=== PATIENT | female | born 1985 | race Caucasian/White ===

== ENCOUNTER 2021-03-25 13:16 | Emergency (ER) | payer MEDICAID ==
--- NOTE | 2021-03-25 14:44 | EDM.PDOC ---
ED HPI GENERAL MEDICAL PROBLEM - General Chief Complaint: General Stated Complaint: MED[facility] Time Seen by Provider: 03/25/21 14:34 Source of Information: Reports: Patient, EMS, RN Notes Reviewed History Limitations: Reports: No Limitations - History of Present Illness INITIAL COMMENTS - FREE TEXT/NARRATIVE: 35-year-old female presents emergency department today via EMS services for 2 issues 1 is she has noticed some increased swelling in her lower extremities she is also developed a little bit of rash and itchy legs her nifedipine dose was recently increased. The other issue is she states she cannot identify her IUD and would like to have that checked Bilateral Leg Pain Score (Numeric/FACES): 4 - Related Data Allergies Allergy/AdvReac Type Severity Reaction Status Date / Time No Known Allergies Allergy Verified 03/25/21 14:11 Past Medical History Cardiovascular History: Reports: Hypertension Respiratory History: Reports: Asthma Genitourinary History: Reports: Renal Calculus Neurological History: Reports: Migraines Psychiatric History: Reports: Addiction, Anxiety, Panic Attack - Past Surgical History GI Surgical History: Reports: Cholecystectomy Social & Family History - Tobacco Use Tobacco Use Status *Q: Current Every Day Tobacco User Years of Tobacco use: 10 Packs/Tins Daily: 0.5 - Caffeine Use Caffeine Use: Reports: Coffee, Soda - Recreational Drug Use Recreational Drug Use: No ED ROS GENERAL - Review of Systems Review Of Systems: See Below Constitutional: Reports: No Symptoms HEENT: Reports: No Symptoms Respiratory: Reports: No Symptoms Cardiovascular: Reports: Edema GI/Abdominal: Reports: No Symptoms Skin: Reports: Pruritis, Rash ED EXAM, GENERAL - Physical Exam Exam: See Below Exam Limited By: No Limitations General Appearance: Alert, WD/WN, No Apparent Distress Respiratory/Chest: No Respiratory Distress, Lungs Clear, Normal Breath Sounds, No Accessory Muscle Use, Chest Non-Tender Cardiovascular: Regular Rate, Rhythm, No Murmur (Female) Exam: Normal External Exam, Normal Speculum Exam, Other (String is not identified, exam done in the presence of nursing staff) Extremities: No Pedal Edema (Trace) Skin Exam: Rash (Consistent with drug eruption) Course - Vital Signs Last Recorded V/S: Last Vital Signs Temp 97.8 F 03/25/21 14:07 Pulse 93 03/25/21 14:07 Resp 16 03/25/21 14:07 BP 136/81 03/25/21 14:07 Pulse Ox 96 03/25/21 14:07 - Orders/Labs/Meds Orders: Active Orders 24 hr Category Date Time Status Abdomen 1V Upright [CR] Stat Exams 03/25/21 16:28 Taken Transvaginal Non OB [US] Stat Exams 03/25/21 15:01 Taken metroNIDAZOLE Med 03/25/21 16:53 Once 2,000 mg PO NOW ONE Labs: Laboratory Tests 03/25/21 03/25/21 Range/Units 15:02 15:02 Urine Color Yellow (YELLOW) Urine Appearance Cloudy A (CLEAR) Urine pH 7.5 (5.0-8.0) Ur Specific [place] 1.020 (1.008-1.030) Urine Protein Negative (NEGATIVE) mg/dL Urine Glucose (UA) Negative (NEGATIVE) mg/dL Urine Ketones Negative (NEGATIVE) mg/dL Urine Occult Blood Negative (NEGATIVE) Urine Nitrite Negative (NEGATIVE) Urine Bilirubin Negative (NEGATIVE) Urine Urobilinogen 0.2 (0.2-1.0) EU/dL Ur Leukocyte Esterase Small H (NEGATIVE) Urine RBC 0-5 (0-5) Urine WBC 5-10 H (0-5) Ur Epithelial Cells Moderate Amorphous Sediment Not seen Urine Bacteria Many Urine Mucus Not seen Urine Other Urine HCG, Qual Negative Departure - Departure Time of Disposition: 16:56 Disposition: DC/Tfer to Inpt Rehab Fac 62 Condition: Fair Clinical Impression: Trichomonas infection, Adverse effect of nifedipine - Discharge Information Referrals: PCP,None [Primary Care Provider] - Forms: ED Department Discharge Additional Instructions: Please follow-up with your primary care provider upon return home to discuss side effects of the nifedipine please contact your sexual partners about the trichomonas call or return to the emergency department worsening of symptoms Sepsis Event Note (ED) - Focused Exam Vital Signs: Vital Signs Temp Pulse Resp BP Pulse Ox 03/25/21 14:07 97.8 F 93 16 136/81 96 - My Orders Last 24 Hours: My Active Orders 03/25/21 15:01 Transvaginal Non OB [US] Stat 03/25/21 16:28 Abdomen 1V Upright [CR] Stat 03/25/21 16:53 metroNIDAZOLE 2,000 mg PO NOW ONE - Assessment/Plan Last 24 Hours: My Active Orders 03/25/21 15:01 Transvaginal Non OB [US] Stat 03/25/21 16:28 Abdomen 1V Upright [CR] Stat 03/25/21 16:53 metroNIDAZOLE 2,000 mg PO NOW ONE Plan: Assessment Acuity = acute Site and laterality = ankle edema with uticaric type reaction, no IUD is found, trichomonas Etiology = known side effects of nifedipine, unknown reason for loss of IUD, sexually active Manifestations = none Location of injury = Home Lab values = urinalysis shows 5 to 6-10 WBCs consistent with the pyuria Trichomonas present is negative Plan Elected to treat empirically one-time dose metronidazole 2 g she would like to remain on the nifedipine and follow-up with her primary care provider when she gets back home This note was dictated using [employer] voice recognition software please call with any questions on syntax or grammar.
[2021-03-25] MEDS ORDERED: metroNIDAZOLE 250 MG Tab PO ONE (16:53)
--- NOTE | 2021-03-26 10:54 | US ---
Transvaginal Non OB CLINICAL HISTORY: IUD placement FINDINGS: Uterus measures 8.4 x 3.9 x 5.2 cm. There is mild heterogeneity in the myometrium. No mass is seen. Endometrial thickness is 5 mm. No IUD is identified within the endometrial cavity or myometrium. Ovaries have normal color flow. No mass is seen. There is no free fluid IMPRESSION: No IUD is identified within the uterus
--- NOTE | 2021-03-26 11:34 | CR ---
Abdomen 1V Upright CLINICAL HISTORY: IUD placement FINDINGS: Intestinal gas pattern is nonspecific. There is gas and feces within the colon. There are surgical clips in the right upper quadrant. No urinary stones are identified. No IUD is identified. The lower vagina and vaginal introitus is not included on this exam IMPRESSION: No IUD identified
== END 2021-03-25 17:45 ==
LOC: JP.ED 13:16
DX: A59.9 Trichomoniasis, unspecified (principal); T78.8XXA Other adverse effects, not elsewhere classified, initial encounter; I10 Essential (primary) hypertension; F17.210 Nicotine dependence, cigarettes, uncomplicated
CPT/HCPCS: 74018; 76830; 81001; 81025; 99284; A9270